=== PATIENT | female | born 1985 | race Caucasian/White ===

== ENCOUNTER → 2017-04-16 | Outpatient (CLI) | payer OTHER ==
[2017-04-16 09:13] LABS: HEMATOCRIT 40.9 % (36.0-47.0); HEMOGLOBIN 13.8 g/dl (12.0-16.0); MEAN CORPUSCULAR HEMOGLOBIN 29.9 pg (27.0-33.0); MEAN CORPUSCULAR HGB CONC 33.7 g/dl (32.0-36.5); MEAN CORPUSCULAR VOLUME 88.5 fl (80.0-96.0); PLATELET COUNT, AUTOMATED 290 10^3/uL (150-450); RED BLOOD COUNT 4.62 10^6/uL (4.00-5.40); RED CELL DISTRIBUTION WIDTH 13.2 % (11.5-14.5); WHITE BLOOD COUNT 5.5 10^3/uL (4.0-10.0)
[2017-04-16 09:43] LABS: BLOOD UREA NITROGEN 12 MG/DL (7-18); CREATININE FOR GFR 0.76 MG/DL (0.55-1.02); GLUCOSE, FASTING 90 MG/DL (70-105)
[2017-04-16 09:44] LABS: ALBUMIN 3.8 GM/DL (3.2-5.2); ALBUMIN/GLOBULIN RATIO 1.23 (1.00-1.93); ALKALINE PHOSPHATASE 58 U/L (45-117); ALT/SGPT 15 U/L (12-78); ANION GAP 8 MEQ/L (8-16); AST/SGOT 6 U/L (7-37); BILIRUBIN,TOTAL 0.4 MG/DL (0.2-1.0); CALCIUM LEVEL 8.1 MG/DL (8.5-10.1); CARBON DIOXIDE LEVEL 25 MEQ/L (21-32); CHLORIDE LEVEL 110 MEQ/L (98-107); CHOLESTEROL LEVEL 181 MG/DL (<200); CHOLESTEROL RISK RATIO 4.891 (<5); GLOMERULAR FILTRATION RATE > 60.0 (>60); HDL CHOLESTEROL 37 MG/DL (>40); LDL CHOLESTEROL 130.2 MG/DL (<100); NON-HDL-C 144 MG/DL; POTASSIUM SERUM 4.2 MEQ/L (3.5-5.1); SODIUM LEVEL 143 MEQ/L (136-145); THYROID STIMULATING HORMONE 0.914 uIU/ML (0.358-3.740); TOTAL PROTEIN 6.9 GM/DL (6.4-8.2); TRIGLYCERIDES LEVEL 69 MG/DL (<150)
[2017-04-18 11:59] LABS: TOTAL 25(OH) VITAMIN D 20.2 NG/ML (30.0-100.0)
[2017-04-18 12:04] LABS: VITAMIN B12 LEVEL 254 PG/ML (247-911)
== END ==
LOC: M LAB 08:26
DX: R53.83 Other fatigue (principal); I10 Essential (primary) hypertension; E78.5 Hyperlipidemia, unspecified
CPT/HCPCS: 84443

== ENCOUNTER → 2018-01-20 | Outpatient (REF) | payer OTHER | LOC: M SFHCLERA 20:12 | DX: R30.0 Dysuria (principal); N89.8 Other specified noninflammatory disorders of vagina ==

== ENCOUNTER → 2018-03-19 | Outpatient (REF) | payer OTHER | LOC: M SFHCLERA 15:05 | PROVIDERS: ATTEND Nurse Practitioner Family | DX: R10.30 Lower abdominal pain, unspecified (principal) ==

== ENCOUNTER → 2018-04-19 | Outpatient (CLI) | payer OTHER ==
--- NOTE | 2018-04-30 07:29 | SLEEP ---
DATE OF PROCEDURE: 04/19/2018 REFERRING PHYSICIAN: Dr. Chuy Martell. INTERPRETATION: Overnight polysomnography was performed for evaluation of excessive daytime sleepiness. A total 8 hours and 35 minutes of data was reviewed with total sleep time 446.5 minutes with prolonged sleep onset latency and reduced sleep efficiency. Mild snoring was observed during this study. The mean oxygen saturation remained 95% with minimum oxygen saturation of 89% during some of the respiratory events. EKG revealed sinus rhythm with mean heart rate 70 beats per minute with periodic speeding and slowing of heart rate surrounding respiratory events. EEG remained normal throughout the study. Respiratory disturbance index was abnormal 10.9 per hour with 10.2 respiratory effort related arousals per hour. There were no significant periodic limb movements of sleep. CONCLUSION: 1. Obstructive sleep apnea syndrome. 2. Reduced sleep efficiency and excessive sleep fragmentation. RECOMMENDATIONS: Overnight polysomnography for titration of positive airway pressure is recommended. In the meantime the patient's exercise caution while operating motor vehicles and heavy machinery. If excessive daytime sleepiness remains a clinical concern, a repeat polysomnography on capital CPAP followed by multiple sleep latency test should be considered. Clinical correlation is recommended.
== END ==
LOC: M SLEEP 19:57
PROVIDERS: ATTEND Psychiatry & Neurology Neurology
DX: G47.33 Obstructive sleep apnea (adult) (pediatric) (principal); F51.12 Insufficient sleep syndrome; G47.8 Other sleep disorders

== ENCOUNTER → 2018-12-13 | Outpatient (REF) | payer OTHER ==
[2018-12-13 16:51] LABS: INFLUENZA A AMPLIFICATION NEGATIVE (NEGATIVE); INFLUENZA B AMPLIFICATION NEGATIVE (NEGATIVE)
== END ==
LOC: M LAB REF 16:14
PROVIDERS: ATTEND Physician Assistant
DX: J11.1 Influenza due to unidentified influenza virus with other respiratory manifestations (principal)

== ENCOUNTER → 2021-04-20 | Outpatient (CLI) | payer OTHER | LOC: M WHC 07:58 | PROVIDERS: ATTEND Registered Nurse | DX: N63.20 Unspecified lump in the left breast, unspecified quadrant (principal) | CPT/HCPCS: 76642; 77065; G0279 ==